=== PATIENT | male | born 1970 | race Caucasian/White ===

== ENCOUNTER 2017-07-04 20:31 | Inpatient (IN) | payer MEDICAID, OTHER ==
[~2017-07-04] VITALS: Ht 193 cm; Wt 97.0 kg
[~2017-07-04 20:31] MED LIST: CARV3.1212 PO; FURO-92 PO; LISI5TAB7 PO; POTA20TA14 PO
[2017-07-04 21:29] LABS: BASOPHILS # (AUTO) 0.05 x10^3/uL (0-0.1); BASOPHILS % (AUTO) 0 % (0-1); EOSINOPHILS # (AUTO) 0.16 x10^3/uL (0-0.4); EOSINOPHILS % (AUTO) 1 % (1-7); LYMPHOCYTES # (AUTO) 2.99 x10^3/uL (1-3.4); LYMPHOCYTES % (AUTO) 23 % (22-44); MD NO; MEAN CORPUSCULAR HEMOGLOBIN 30.3 pg (27.5-34.5); MEAN CORPUSCULAR HGB CONC 32.9 g/dL (33.2-36.2); MEAN CORPUSCULAR VOLUME 92.1 fL (81-97); MEAN PLATELET VOLUME 9.6 fL (7.4-10.4); MONOCYTES # (AUTO) 1.03 x10^3/uL (0.2-0.8); MONOCYTES % (AUTO) 8 % (2-9); NEUTROPHILS % (AUTO) 68 % (42-75); PLATELET COUNT 184 x10^3/uL (130-400); RED BLOOD COUNT 5.07 x10^6/uL (4.38-5.82); RED CELL DISTRIBUTION WIDTH 14.9 % (9.4-14.8)
[2017-07-04 21:41] LABS: ALANINE AMINOTRANSFERASE 70 U/L (12-78); ALBUMIN 3.3 g/dL (3.4-5.0); ANION GAP 7 mmol/L (5-15); CALCIUM 8.9 mg/dL (8.5-10.1); CHLORIDE 104 mmol/L (98-107); CREATININE 1.33 mg/dL (0.7-1.3)
[2017-07-04 21:45] LABS: ALKALINE PHOSPHATASE 60 U/L (45-117); BILIRUBIN,TOTAL 0.9 mg/dL (0.2-1.0); TOTAL PROTEIN 6.6 g/dL (6.4-8.2)
[2017-07-04] MEDS ORDERED: ASPIRIN 325 MG TABLET PO ONE (22:01)
[2017-07-04] MEDS ORDERED: ASPIRIN 81 MG TABLET CHEW ONE (22:18)
[2017-07-04] MEDS ORDERED: ONDANSETRON 2MG/ML, 2ML ONE (22:18)
[2017-07-04] MEDS ORDERED: MORPHINE SULFATE 4 MG/ML, 1ML ONE (22:18)
[2017-07-04] MEDS ORDERED: ONDANSETRON 2MG/ML, 2ML IVPush PRN (22:30)
[2017-07-04] MEDS ORDERED: MORPHINE SULFATE 4 MG/ML, 1ML IVPush PRN (22:30)
[2017-07-04] MEDS ORDERED: BISACODYL 10 MG SUPP PR PRN (23:30)
[2017-07-04] MEDS ORDERED: POLYETHYLENE GLYCOL 17 GM PACKET PO PRN (23:30)
[2017-07-05 00:09] VITALS: BP 107/77
[2017-07-05] MEDS: HEPARIN 5,000 UNITS/ML, 1ML SQ SCH ×3 (00:15→17:45)
[2017-07-05] MEDS: FUROSEMIDE 20 MG/2 ML IV SCH ×3 (00:15→17:45)
[2017-07-05] MEDS: SODIUM CHLORIDE FLUSH 10ML SYR IVF SCH ×3 (00:15→21:00)
[2017-07-05] MEDS: ONDANSETRON 2MG/ML, 2ML IVPush PRN ×2 (03:43→13:04)
[2017-07-05 04:11] LABS: AMPHETAMINE SCREEN, URINE Positive (Negative); BARBITURATE SCREEN, URINE Negative (Negative); BENZODIAZEPINE SCREEN, URINE Negative (Negative); CANNABINOID SCREEN, URINE Positive (Negative); COCAINE SCREEN, URINE Negative (Negative); METHADONE SCREEN, URINE Negative (Negative); OPIATE SCREEN, URINE Positive (Negative)
[2017-07-05 05:58] LABS: BASOPHILS # (AUTO) 0.06 x10^3/uL (0-0.1); BASOPHILS % (AUTO) 0 % (0-1); EOSINOPHILS # (AUTO) 0.13 x10^3/uL (0-0.4); EOSINOPHILS % (AUTO) 1 % (1-7); LYMPHOCYTES # (AUTO) 3.07 x10^3/uL (1-3.4); LYMPHOCYTES % (AUTO) 19 % (22-44); MD NO; MEAN CORPUSCULAR HEMOGLOBIN 30.4 pg (27.5-34.5); MEAN CORPUSCULAR HGB CONC 32.7 g/dL (33.2-36.2); MEAN CORPUSCULAR VOLUME 92.9 fL (81-97); MEAN PLATELET VOLUME 9.7 fL (7.4-10.4); MONOCYTES # (AUTO) 1.27 x10^3/uL (0.2-0.8); MONOCYTES % (AUTO) 8 % (2-9); NEUTROPHILS # (AUTO) 11.53 x10^3/uL (1.8-6.8); NEUTROPHILS % (AUTO) 72 % (42-75); PLATELET COUNT 175 x10^3/uL (130-400); RED BLOOD COUNT 5.53 x10^6/uL (4.38-5.82); RED CELL DISTRIBUTION WIDTH 14.7 % (9.4-14.8)
[2017-07-05 06:05] LABS: ALBUMIN 3.4 g/dL (3.4-5.0); ANION GAP 8 mmol/L (5-15); CALCIUM 8.8 mg/dL (8.5-10.1); CHLORIDE 103 mmol/L (98-107)
[2017-07-05 06:09] LABS: ALANINE AMINOTRANSFERASE 111 U/L (12-78); ALKALINE PHOSPHATASE 71 U/L (45-117); BILIRUBIN,TOTAL 1.8 mg/dL (0.2-1.0); CREATININE 1.67 mg/dL (0.7-1.3); TOTAL PROTEIN 6.8 g/dL (6.4-8.2)
[2017-07-05 06:29] VITALS: BP 93/72
[2017-07-05 06:37] VITALS: BP 94/52
[2017-07-05 06:45] VITALS: BP_SYST 92; BP_SYST 93; BP_DIAS 69; BP_DIAS 72
[2017-07-05] MEDS: CARVEDILOL 3.125 MG TABLET PO SCH ×2 (07:50→18:39)
[2017-07-05] MEDS ORDERED: POTASSIUM CHLORIDE 20 MEQ TAB.ER.PRT PO SCH (08:00)
[2017-07-05] MEDS ORDERED: PROMETHAZINE 25 MG/ML, 1ML IM PRN (08:00)
[2017-07-05] MEDS: SENNA/DOCUSATE TABLET PO SCH (08:04)
[2017-07-05 08:33] LABS: MICROSCOPIC AUTO
[2017-07-05 08:42] LABS: CULTURE INDICATED? NO
[2017-07-05] MEDS ORDERED: LISINOPRIL 5 MG TABLET PO SCH (09:00)
[2017-07-05] MEDS ORDERED: SODIUM POLYSTYRENE SULFONATE ORAL SUSP PO ONE ×2 (10:30→12:30)
[2017-07-05 11:56] LABS: HCT (SEDRATE) 54.9 % (39.2-51.8)
[2017-07-05 12:12] LABS: HIGH-SENSITIVITY CRP 2.2 mg/dL (0.02-0.30)
[2017-07-05] MEDS ORDERED: DEXTROSE 50%, 50ML SYRINGE ONE (12:17)
[2017-07-05] MEDS ORDERED: DEXTROSE 50%, 50ML SYRINGE IVPush ONE (12:30)
[2017-07-05] MEDS ORDERED: INSULIN REGULAR 100 UNITS/ML, 3ML VIAL IVPush SCH (12:30)
[2017-07-05] MEDS ORDERED: CALCIUM GLUCONATE 4.6 MEQ in SODIUM CHLORIDE 0.9% 50 ML IV ONE (12:30)
[2017-07-05 13:45] VITALS: BP 120/82
[2017-07-05] MEDS: ACETAMINOPHEN 325 MG TABLET PO PRN (14:31)
[2017-07-05 16:00] LABS: THYROID STIMULATING HORMONE 1.33 mIU/L (0.358-3.740)
[2017-07-05] MEDS ORDERED: VANCOMYCIN PER PHARMACY MC PRN (17:30)
[2017-07-05] MEDS ORDERED: PHARMACOKINETIC CONSULTATION MC ONE (17:30)
[2017-07-05] MEDS ORDERED: PHARMACOKINETIC MONITORING MC PRN (17:30)
[2017-07-05] MEDS: MEROPENEM 1 GM in SODIUM CHLORIDE 0.9% 100 ML IV SCH (17:44)
[2017-07-05] MEDS: VANCOMYCIN 2,000 MG in SODIUM CHLORIDE 0.9% 500 ML IV SCH (18:39)
[2017-07-05 20:10] VITALS: BP 91/61
[2017-07-06] MEDS: HEPARIN 5,000 UNITS/ML, 1ML SQ SCH ×3 (00:02→17:40)
[2017-07-06] MEDS: NICOTINE 14MG/24 HR PATCH.TD24 TD SCH (00:03)
[2017-07-06] MEDS: MEROPENEM 1 GM in SODIUM CHLORIDE 0.9% 100 ML IV SCH ×3 (01:20→17:39)
[2017-07-06 02:19] VITALS: BP 103/70
[2017-07-06] MEDS: CARVEDILOL 3.125 MG TABLET PO SCH ×2 (05:52→17:40)
[2017-07-06 05:55] LABS: MEAN CORPUSCULAR HGB CONC 32.7 g/dL (33.2-36.2); MEAN CORPUSCULAR VOLUME 91.6 fL (81-97); RED BLOOD COUNT 4.61 x10^6/uL (4.38-5.82); RED CELL DISTRIBUTION WIDTH 14.8 % (9.4-14.8)
[2017-07-06 05:56] LABS: CHLORIDE 101 mmol/L (98-107)
[2017-07-06 06:10] LABS: ANION GAP 10 mmol/L (5-15); CALCIUM 7.7 mg/dL (8.5-10.1); CREATININE 1.62 mg/dL (0.7-1.3)
[2017-07-06 06:20] LABS: MICROSCOPIC NOT IND
[2017-07-06 06:25] LABS: MEAN PLATELET VOLUME 10.2 fL (7.4-10.4); PLATELET COUNT 134 x10^3/uL (130-400)
[2017-07-06 06:27] LABS: MD YES
[2017-07-06 06:28] LABS: BAND#(MANUAL) 0.59 x10^3/uL; BANDS%(MANUAL) 3 % (0-7); EOS% (MANUAL) 1 % (1-7); LYMPH#(MANUAL) 2.57 x10^3/uL (1-3.4); LYMPHS% (MANUAL) 13 % (22-44); MONOS% (MANUAL) 1 % (2-9); REACTIVE LYMPHS # (MANUAL) 0.59 x10^3/uL (0-0); REACTIVE LYMPHS % (MANUAL) 3 % (0-0); SEG#(MANUAL) 15.64 x10^3/uL (1.8-6.8); SEGS% (MANUAL) 79 % (42-75)
[2017-07-06 06:29] LABS: POLYCHROMASIA 1+
[2017-07-06 06:30] LABS: <PLATELET ESTIMATE> ADEQUATE; LARGE PLATELETS 1+
[2017-07-06 06:32] LABS: CREATININE,URINE RANDOM 83.5 mg/dL
[2017-07-06 06:51] LABS: ABSOLUTE RETICS # 0.11 x10^6/uL (0.5-1.5); RED BLOOD COUNT 4.63 x10^6/uL (4.38-5.82); RETICULOCYTE COUNT % 2.38 % (0.5-1.5)
[2017-07-06 06:56] LABS: CALCIUM 7.7 mg/dL (8.5-10.1)
[2017-07-06] MEDS ORDERED: FUROSEMIDE 40 MG/4 ML IV SCH (07:30)
[2017-07-06 08:03] VITALS: BP 97/62
[2017-07-06] MEDS: SODIUM CHLORIDE FLUSH 10ML SYR IVF SCH ×2 (09:14→21:29)
[2017-07-06] MEDS: FUROSEMIDE 20 MG/2 ML IV SCH ×2 (09:15→17:38)
[2017-07-06] MEDS: SENNA/DOCUSATE TABLET PO SCH (09:22)
[2017-07-06] MEDS ORDERED: ERGOCALCIFEROL 50,000 UNIT CAPSULE PO SCH (09:30)
[2017-07-06] MEDS ORDERED: MAGNESIUM SULFATE PMX 2GM/50ML 50 ML IV ONE (10:00)
[2017-07-06 14:25] VITALS: BP 107/68
[2017-07-06 17:42] VITALS: BP 104/66
[2017-07-06] MEDS: VANCOMYCIN 2,000 MG in SODIUM CHLORIDE 0.9% 500 ML IV SCH (18:45)
[2017-07-06 19:38] VITALS: BP 102/50
[2017-07-06 20:40] LABS: ANION GAP 7 mmol/L (5-15); CALCIUM 8.2 mg/dL (8.5-10.1); CHLORIDE 100 mmol/L (98-107); CREATININE 1.61 mg/dL (0.7-1.3)
[2017-07-06] MEDS ORDERED: POTASSIUM CHLORIDE 20 MEQ TAB.ER.PRT PO ONE (21:00)
[2017-07-07 00:45] VITALS: BP 111/75
[2017-07-07] MEDS: NICOTINE 14MG/24 HR PATCH.TD24 TD SCH (00:47)
[2017-07-07] MEDS: MEROPENEM 1 GM in SODIUM CHLORIDE 0.9% 100 ML IV SCH ×3 (00:47→16:44)
[2017-07-07] MEDS: HEPARIN 5,000 UNITS/ML, 1ML SQ SCH ×3 (00:48→16:44)
[2017-07-07] MEDS: ACETAMINOPHEN 325 MG TABLET PO PRN ×3 (05:05→16:46)
[2017-07-07] MEDS: CARVEDILOL 3.125 MG TABLET PO SCH ×2 (05:06→16:44)
[2017-07-07 05:07] LABS: BASOPHILS # (AUTO) 0.17 x10^3/uL (0-0.1); BASOPHILS % (AUTO) 1 % (0-1); EOSINOPHILS # (AUTO) 0.25 x10^3/uL (0-0.4); EOSINOPHILS % (AUTO) 2 % (1-7); LYMPHOCYTES # (AUTO) 3.07 x10^3/uL (1-3.4); LYMPHOCYTES % (AUTO) 21 % (22-44); MD NO; MEAN CORPUSCULAR HEMOGLOBIN 30.5 pg (27.5-34.5); MEAN CORPUSCULAR HGB CONC 32.9 g/dL (33.2-36.2); MEAN CORPUSCULAR VOLUME 92.8 fL (81-97); MEAN PLATELET VOLUME 9.6 fL (7.4-10.4); MONOCYTES # (AUTO) 0.91 x10^3/uL (0.2-0.8); MONOCYTES % (AUTO) 6 % (2-9); NEUTROPHILS # (AUTO) 10.35 x10^3/uL (1.8-6.8); NEUTROPHILS % (AUTO) 70 % (42-75); PLATELET COUNT 128 x10^3/uL (130-400); RED BLOOD COUNT 4.75 x10^6/uL (4.38-5.82); RED CELL DISTRIBUTION WIDTH 14.6 % (9.4-14.8)
[2017-07-07 05:15] LABS: CHLORIDE 101 mmol/L (98-107)
[2017-07-07 05:29] LABS: ALANINE AMINOTRANSFERASE 2840 U/L (12-78); ALBUMIN 2.7 g/dL (3.4-5.0); ALKALINE PHOSPHATASE 66 U/L (45-117); ANION GAP 9 mmol/L (5-15); BILIRUBIN,TOTAL 1.3 mg/dL (0.2-1.0); CALCIUM 8.2 mg/dL (8.5-10.1); CREATININE 1.18 mg/dL (0.7-1.3); TOTAL PROTEIN 5.7 g/dL (6.4-8.2)
[2017-07-07 07:25] VITALS: BP 93/60
[2017-07-07] MEDS: SODIUM CHLORIDE FLUSH 10ML SYR IVF SCH ×2 (08:38→20:22)
[2017-07-07] MEDS: FUROSEMIDE 20 MG/2 ML IV SCH ×2 (08:38→16:44)
[2017-07-07] MEDS: SENNA/DOCUSATE TABLET PO SCH (08:38)
[2017-07-07 14:20] VITALS: BP 110/75
[2017-07-07] MEDS: LEVOFLOXACIN/PMX 750MG/150ML 150 ML IV SCH (18:06)
[2017-07-07 19:16] VITALS: BP 93/61
[2017-07-08] VITALS (8 sets, daily range): BP systolic 90–119; BP diastolic 67–85
[2017-07-08] MEDS: HEPARIN 5,000 UNITS/ML, 1ML SQ SCH ×3 (00:33→16:56)
[2017-07-08] MEDS: NICOTINE 14MG/24 HR PATCH.TD24 TD SCH ×3 (00:34→12:53)
[2017-07-08 05:17] LABS: BASOPHILS # (AUTO) 0.07 x10^3/uL (0-0.1); BASOPHILS % (AUTO) 1 % (0-1); EOSINOPHILS # (AUTO) 0.41 x10^3/uL (0-0.4); EOSINOPHILS % (AUTO) 3 % (1-7); LYMPHOCYTES # (AUTO) 2.95 x10^3/uL (1-3.4); LYMPHOCYTES % (AUTO) 23 % (22-44); MD NO; MEAN CORPUSCULAR HEMOGLOBIN 30.3 pg (27.5-34.5); MEAN CORPUSCULAR VOLUME 91.7 fL (81-97); MEAN PLATELET VOLUME 9.5 fL (7.4-10.4); MONOCYTES # (AUTO) 1.17 x10^3/uL (0.2-0.8); MONOCYTES % (AUTO) 9 % (2-9); NEUTROPHILS # (AUTO) 8.44 x10^3/uL (1.8-6.8); NEUTROPHILS % (AUTO) 65 % (42-75); PLATELET COUNT 120 x10^3/uL (130-400); RED BLOOD COUNT 4.86 x10^6/uL (4.38-5.82); RED CELL DISTRIBUTION WIDTH 15.2 % (9.4-14.8)
[2017-07-08 05:27] LABS: ALBUMIN 2.6 g/dL (3.4-5.0); ANION GAP 8 mmol/L (5-15); CALCIUM 7.6 mg/dL (8.5-10.1); CHLORIDE 102 mmol/L (98-107)
[2017-07-08 05:36] LABS: ALANINE AMINOTRANSFERASE 2458 U/L (12-78); ALKALINE PHOSPHATASE 77 U/L (45-117); BILIRUBIN,TOTAL 1.3 mg/dL (0.2-1.0); CREATININE 0.92 mg/dL (0.7-1.3); TOTAL PROTEIN 5.8 g/dL (6.4-8.2)
[2017-07-08] MEDS: CARVEDILOL 3.125 MG TABLET PO SCH ×3 (06:05→21:21)
[2017-07-08] MEDS: FUROSEMIDE 20 MG/2 ML IV SCH (09:38)
[2017-07-08] MEDS: SODIUM CHLORIDE FLUSH 10ML SYR IVF SCH ×2 (09:41→21:21)
[2017-07-08] MEDS: SENNA/DOCUSATE TABLET PO SCH (09:41)
[2017-07-08] MEDS ORDERED: FUROSEMIDE 20 MG/2 ML IV SCH (17:00)
[2017-07-08] MEDS: LEVOFLOXACIN/PMX 750MG/150ML 150 ML IV SCH (18:01)
[2017-07-08] MEDS: ACETAMINOPHEN 325 MG TABLET PO PRN (23:07)
[2017-07-09 01:07] VITALS: BP 98/69
[2017-07-09] MEDS: HEPARIN 5,000 UNITS/ML, 1ML SQ SCH ×4 (02:38→21:54)
[2017-07-09 05:40] LABS: ALBUMIN 2.8 g/dL (3.4-5.0); ANION GAP 7 mmol/L (5-15); CALCIUM 8.1 mg/dL (8.5-10.1); CHLORIDE 101 mmol/L (98-107)
[2017-07-09 05:41] LABS: MEAN CORPUSCULAR HEMOGLOBIN 30.3 pg (27.5-34.5); MEAN CORPUSCULAR HGB CONC 32.7 g/dL (33.2-36.2); MEAN CORPUSCULAR VOLUME 92.7 fL (81-97); PLATELET COUNT 133 x10^3/uL (130-400); RED BLOOD COUNT 4.95 x10^6/uL (4.38-5.82); RED CELL DISTRIBUTION WIDTH 15.3 % (9.4-14.8)
[2017-07-09 05:49] LABS: ALANINE AMINOTRANSFERASE 1919 U/L (12-78); ALKALINE PHOSPHATASE 79 U/L (45-117); BILIRUBIN,TOTAL 0.9 mg/dL (0.2-1.0); CREATININE 1.05 mg/dL (0.7-1.3); TOTAL PROTEIN 6.2 g/dL (6.4-8.2)
[2017-07-09 06:17] LABS: BASOPHILS # (AUTO) 0.08 x10^3/uL (0-0.1); BASOPHILS % (AUTO) 1 % (0-1); EOSINOPHILS # (AUTO) 0.41 x10^3/uL (0-0.4); EOSINOPHILS % (AUTO) 3 % (1-7); LYMPHOCYTES # (AUTO) 3.91 x10^3/uL (1-3.4); LYMPHOCYTES % (AUTO) 31 % (22-44); MD SCAN; MONOCYTES # (AUTO) 1.65 x10^3/uL (0.2-0.8); MONOCYTES % (AUTO) 13 % (2-9); NEUTROPHILS # (AUTO) 6.74 x10^3/uL (1.8-6.8); NEUTROPHILS % (AUTO) 53 % (42-75)
[2017-07-09 08:52] VITALS: BP 108/77
[2017-07-09] MEDS: CARVEDILOL 3.125 MG TABLET PO SCH ×3 (08:54→21:12)
[2017-07-09] MEDS: SENNA/DOCUSATE TABLET PO SCH (08:54)
[2017-07-09] MEDS: FUROSEMIDE 20 MG TABLET PO SCH ×2 (08:54→17:08)
[2017-07-09] MEDS: SODIUM CHLORIDE FLUSH 10ML SYR IVF SCH ×2 (08:54→21:12)
[2017-07-09] MEDS: ACETAMINOPHEN 325 MG TABLET PO PRN ×3 (09:46→21:54)
[2017-07-09 14:30] VITALS: BP 103/70
[2017-07-09] MEDS: LEVOFLOXACIN/PMX 750MG/150ML 150 ML IV SCH (17:59)
[2017-07-09 18:49] VITALS: BP 94/68
[2017-07-09] MEDS: NICOTINE 14MG/24 HR PATCH.TD24 TD SCH (19:35)
[2017-07-10 00:45] VITALS: BP 125/67
[2017-07-10 05:52] LABS: ALBUMIN 2.9 g/dL (3.4-5.0); ANION GAP 9 mmol/L (5-15); CALCIUM 8.3 mg/dL (8.5-10.1); CHLORIDE 103 mmol/L (98-107)
[2017-07-10 06:04] LABS: ALANINE AMINOTRANSFERASE 1435 U/L (12-78); ALKALINE PHOSPHATASE 73 U/L (45-117); BILIRUBIN,TOTAL 0.9 mg/dL (0.2-1.0); CREATININE 0.99 mg/dL (0.7-1.3); TOTAL PROTEIN 6.4 g/dL (6.4-8.2)
[2017-07-10 08:30] VITALS: BP 108/78
[2017-07-10] MEDS: SENNA/DOCUSATE TABLET PO SCH (08:41)
[2017-07-10] MEDS: HEPARIN 5,000 UNITS/ML, 1ML SQ SCH (08:54)
[2017-07-10] MEDS: CARVEDILOL 3.125 MG TABLET PO SCH (08:54)
[2017-07-10] MEDS: SODIUM CHLORIDE FLUSH 10ML SYR IVF SCH (08:54)
[2017-07-10] MEDS: METOPROLOL TARTRATE 50 MG TABLET PO SCH ×2 (11:10→16:32)
[2017-07-10] MEDS: FUROSEMIDE 20 MG TABLET PO SCH ×2 (11:10→16:31)
[2017-07-10 14:27] VITALS: BP 97/68
[2017-07-10] MEDS ORDERED: METOPROLOL TARTRATE 50 MG TABLET PO SCH (18:00)
== END 2017-07-10 16:50 | disposition left against medical advice (07) | DRG 871 ==
LOC: ED 21:35 → EDIP 22:10 → 5SO 23:48
PROVIDERS: ADMIT Hospitalist; ATTEND Hospitalist
DX: A41.9 Sepsis, unspecified organism (principal); I21.4 Non-ST elevation (NSTEMI) myocardial infarction; N17.0 Acute kidney failure with tubular necrosis; I50.43 Acute on chronic combined systolic (congestive) and diastolic (congestive) heart failure; I47.2 Ventricular tachycardia; E44.1 Mild protein-calorie malnutrition; I27.20 Pulmonary hypertension, unspecified; I42.0 Dilated cardiomyopathy; E87.5 Hyperkalemia; F15.10 Other stimulant abuse, uncomplicated; F32.9 Major depressive disorder, single episode, unspecified; I34.0 Nonrheumatic mitral (valve) insufficiency; I44.0 Atrioventricular block, first degree; I44.7 Left bundle-branch block, unspecified; I45.6 Pre-excitation syndrome; Z82.49 Family history of ischemic heart disease and other diseases of the circulatory system; Z91.14 Patient's other noncompliance with medication regimen; Z91.19 Patient's noncompliance with other medical treatment and regimen; Z83.3 Family history of diabetes mellitus; F17.210 Nicotine dependence, cigarettes, uncomplicated; Z68.26 Body mass index [BMI] 26.0-26.9, adult; D72.829 Elevated white blood cell count, unspecified
CPT/HCPCS: 36415; 71045; 76770; 80048; 80053; 80202; 80307; 81001; 81003; 82150; 82306; 82310; 82330; 82436; 82550; 82570; 82728; 82962; 83540; 83550; 83605; 83690; 83735; 83880; 83970; 84100; 84132; 84133; 84145; 84156; 84300; 84443; 84481; 84484; 85025; 85045; 85651; 86140; 86141; 86704; 86706; 86708; 86803; 87040; 87340; 87806; 93005; 93306; 93922; 93925; 93970; 96374; 96375; J0610; J1644; J1815; J1956; J2185; J2405; J2550; J3370; G0475; J1940; J3475; J7040

== ENCOUNTER 2017-08-05 13:39 | Emergency (ER) | payer MEDICAID, OTHER ==
[~2017-08-05] VITALS: Ht 193 cm; Wt 88.9 kg
[2017-08-05 13:56] VITALS: BP 99/64
== END 2017-08-05 16:18 | disposition home or self-care (01) ==
LOC: ED 16:10
DX: S29.012A Strain of muscle and tendon of back wall of thorax, initial encounter (principal); R07.89 Other chest pain; X50.1XXA Overexertion from prolonged static or awkward postures, initial encounter; Y93.89 Activity, other specified; Y99.8 Other external cause status; Y92.89 Other specified places as the place of occurrence of the external cause
CPT/HCPCS: 93005; 99284

== ENCOUNTER 2020-06-02 10:00 | Inpatient (IN) | payer OTHER ==
[~2020-06-02] VITALS: Ht 193 cm; Wt 92.4 kg
[~2020-06-02 10:00] MED LIST changes: +AMIO100T4 PO; +AMIO200T42 PO; +AMOX1TAB12 PO; +APIX5TAB PO; +ASPI81TA45 PO; +ATOR40TA78 PO; +DEXTROSE 5%, 50ML ONE; +DOXY100T PO; +GUAI200T37 PO; +MAGN300C PO; +MAGNESIUM SULFATE PO; +METO-93 PO; +POTA10TA6 PO; +RIVA20TA PO
--- NOTE | 2020-06-02 10:41 | NUR ---
PT C/O CP, SOB, AND N/V X 3 DAYS WITH SYMPTOMS WORSENING TODAY. PT STATES HE SWITCHED HIS LASIX MEDICATIONS 3 DAYS AGO AND HE FEELS HE IS RETAIING FLUID.
[2020-06-02 10:57] LABS: BASOPHILS % (AUTO) 1 % (0-1); EOSINOPHILS % (AUTO) 0 % (1-7); LYMPHOCYTES % (AUTO) 28 % (22-44); MEAN CORPUSCULAR HEMOGLOBIN 21.8 pg (27.5-34.5); MEAN CORPUSCULAR HGB CONC 30.5 g/dL (33.2-36.2); MEAN PLATELET VOLUME 8.6 fL (7.4-10.4); MONOCYTES % (AUTO) 10 % (2-9); NEUTROPHILS % (AUTO) 61 % (42-75); PLATELET COUNT 183 x10^3/uL (130-400); RED BLOOD COUNT 4.94 x10^6/uL (4.38-5.82); RED CELL DISTRIBUTION WIDTH 22.6 % (9.4-14.8)
[2020-06-02 11:04] LABS: ALANINE AMINOTRANSFERASE 28 U/L (12-78); ALBUMIN 3.5 g/dL (3.4-5.0); ANION GAP 13 mmol/L (5-15); CALCIUM 8.7 mg/dL (8.5-10.1); CHLORIDE 99 mmol/L (98-107); CREATININE 1.85 mg/dL (0.7-1.3)
[2020-06-02 11:08] LABS: ALKALINE PHOSPHATASE 112 U/L (45-117); BILIRUBIN,TOTAL 3.1 mg/dL (0.2-1.0); TOTAL PROTEIN 7.6 g/dL (6.4-8.2)
--- NOTE | 2020-06-02 11:10 | NUR ---
PT CURRENTLY IN AFLUTTER, RATE 120. MD DUMONT ADVISED.
[2020-06-02 11:15] LABS: TROPONIN I 0.138 ng/mL (0.000-0.045)
--- NOTE | 2020-06-02 11:15 | NUR ---
JUVENAL [place] ADVISED OF CRITICAL VALUES, GLUCOSE AND TROPONIN. JUVENAL VERBAL ORDER FOR DEXTROSE.
[2020-06-02] MEDS ORDERED: DEXTROSE 50%, 50ML SYRINGE ONE (11:16)
[2020-06-02] MEDS ORDERED: DEXTROSE 50%, 50ML SYRINGE IVPush ONE (11:30)
[2020-06-02 11:32] LABS: MD MORPH REVIEW ONLY
[2020-06-02 11:33] LABS: <PLATELET ESTIMATE> ADEQUATE; <PLT MORPHOLOGY> NORMAL PLT MORPH
[2020-06-02 11:34] LABS: ANISOCYTOSIS 2+
[2020-06-02 11:35] LABS: OVALOCYTES 1+
[2020-06-02 11:36] LABS: HYPOCHROMIA 2+; MICROCYTOSIS 2+; POLYCHROMASIA 1+
[2020-06-02] MEDS ORDERED: OMNIPAQUE 350 MG/ML, 75ML BOTTLE ONE (12:07)
[2020-06-02] MEDS ORDERED: FUROSEMIDE 40 MG/4 ML IVPush ONE (14:00)
[2020-06-02] MEDS ORDERED: DILTIAZEM 5 MG/ML, 5ML IV ONE (14:00)
[2020-06-02] MEDS ORDERED: FUROSEMIDE 40 MG/4 ML ONE (14:19)
[2020-06-02] MEDS ORDERED: DILTIAZEM 5 MG/ML, 5ML ONE (14:19)
[2020-06-02] MEDS ORDERED: CARVEDILOL 6.25 MG TABLET PO ONE (14:41)
[2020-06-02] MEDS ORDERED: CARVEDILOL 6.25 MG TABLET ONE (14:57)
--- NOTE | 2020-06-02 15:00 | NUR ---
task rn: pt room lights adjusted for pt comfort. pt reattached to all vs and cardiac monitors and pt educated on need to call before getting out of bed. pt being medicated per mar at this time.
--- NOTE | 2020-06-02 15:25 | NUR ---
REPORT TO CASSANDRA TINEO
[2020-06-02 16:01] VITALS: BP 129/86
[2020-06-02 16:06] VITALS: BP 129/86
[2020-06-02] MEDS ORDERED: LABETALOL 5MG/ML, 20ML ONE (16:36)
[2020-06-02] MEDS ORDERED: AMIODARONE 150 MG in DEXTROSE 5% 100 ML IV ONE (17:00)
[2020-06-02] MEDS ORDERED: FILTER 0.22 MICRON IV PRN (17:00)
[2020-06-02] MEDS ORDERED: LABETALOL 5MG/ML, 20ML IVPush ONE (17:00)
[2020-06-02] MEDS ORDERED: SPIRONOLACTONE 25 MG TABLET PO SCH (17:00)
[2020-06-02 17:19] LABS: BASOPHILS % (AUTO) 0 % (0-1); EOSINOPHILS % (AUTO) 0 % (1-7); LYMPHOCYTES % (AUTO) 15 % (22-44); MEAN CORPUSCULAR HEMOGLOBIN 21.6 pg (27.5-34.5); MEAN PLATELET VOLUME 8.7 fL (7.4-10.4); MONOCYTES % (AUTO) 7 % (2-9); NEUTROPHILS % (AUTO) 78 % (42-75); PLATELET COUNT 170 x10^3/uL (130-400); RED BLOOD COUNT 5.05 x10^6/uL (4.38-5.82); RED CELL DISTRIBUTION WIDTH 22.2 % (9.4-14.8)
[2020-06-02 17:29] LABS: ALANINE AMINOTRANSFERASE 30 U/L (12-78); ALBUMIN 3.3 g/dL (3.4-5.0); ANION GAP 20 mmol/L (5-15); CALCIUM 8.9 mg/dL (8.5-10.1); CHLORIDE 100 mmol/L (98-107); CREATININE 2.01 mg/dL (0.7-1.3)
[2020-06-02] MEDS ORDERED: DEXTROSE 10% 1,000 ML IV SCH (17:30)
[2020-06-02] MEDS ORDERED: DOBUTAMINE/D5W PMX 250 ML IV PRN ×2 (17:30→18:00)
[2020-06-02 17:31] LABS: INTERNATIONAL NORMALIZED RATIO 2.37 (0.93-1.1); PROTHROMBIN TIME 24.9 Seconds (9.6-11.5)
[2020-06-02 17:34] LABS: ALKALINE PHOSPHATASE 108 U/L (45-117); BILIRUBIN,TOTAL 4.5 mg/dL (0.2-1.0); TOTAL PROTEIN 7.1 g/dL (6.4-8.2); TROPONIN I 0.126 ng/mL (0.000-0.045)
[2020-06-02 17:38] LABS: MD MORPH REVIEW ONLY; MEAN CORPUSCULAR HGB CONC 29.6 g/dL (33.2-36.2)
[2020-06-02 17:39] LABS: <PLATELET ESTIMATE> ADEQUATE; ANISOCYTOSIS 2+; HYPOCHROMIA 2+; MICROCYTOSIS 1+; POLYCHROMASIA 1+; TARGET CELLS 1+
[2020-06-02 17:40] LABS: <PLT MORPHOLOGY> NORMAL PLT MORPH
[2020-06-02] MEDS: CARVEDILOL 3.125 MG TABLET PO SCH ×2 (17:43→21:51)
[2020-06-02] MEDS ORDERED: HEPARIN 25,000 UNITS/250ML PMX 250 ML IV PRN (18:00)
[2020-06-02] MEDS ORDERED: NOREPINEPHRINE 8 MG in SODIUM CHLORIDE 0.9% 242 ML IV PRN (18:00)
[2020-06-02] MEDS ORDERED: HEPARIN 5,000 UNITS/ML, 1ML IV ONE (18:00)
[2020-06-02] MEDS ORDERED: HEPARIN 5,000 UNITS/ML, 1ML IV PRN (18:00)
[2020-06-02] MEDS ORDERED: AMIODARONE 450 MG in DEXTROSE 5% 241 ML IV PRN (18:00)
[2020-06-02] MEDS ORDERED: DOBUTAMINE/D5W PMX 250 MG/250 ML ONE (18:06)
[2020-06-02] MEDS ORDERED: DEXTROSE 10%, 1,000ML ONE (18:12)
[2020-06-02] MEDS: DEXTROSE 50%, 50ML SYRINGE IVPush PRN ×2 (18:25→18:33)
[2020-06-02] MEDS ORDERED: GLUCAGON 1 MG IM PRN (18:30)
[2020-06-02] MEDS ORDERED: PHYTONADIONE 5 MG TABLET PO ONE (18:30)
[2020-06-02] MEDS ORDERED: DEXTROSE 4 GM TAB.CHEW PO PRN (18:30)
[2020-06-02] MEDS: AMIODARONE 450 MG in DEXTROSE 5% 241 ML IV PRN (19:13)
[2020-06-02 19:18] LABS: BILIRUBIN, DIRECT 2.4 mg/dL (0.1-0.2)
[2020-06-02 19:27] LABS: BILIRUBIN,INDIRECT 2.2 mg/dL (0.0-2.0); BILIRUBIN,TOTAL 4.6 mg/dL (0.2-1.0)
[2020-06-02] MEDS ORDERED: STERILE WATER IV SCH ×3 (19:30→23:30)
[2020-06-02] MEDS ORDERED: DEXTROSE 70% IV SCH ×3 (19:30→23:30)
[2020-06-02 20:06] LABS: MICROSCOPIC AUTO
[2020-06-02 20:18] LABS: AMPHETAMINE SCREEN, URINE Negative (Negative); BARBITURATE SCREEN, URINE Negative (Negative); BENZODIAZEPINE SCREEN, URINE Negative (Negative); CANNABINOID SCREEN, URINE Negative (Negative); COCAINE SCREEN, URINE Negative (Negative); METHADONE SCREEN, URINE Negative (Negative); OPIATE SCREEN, URINE Negative (Negative)
[2020-06-02] MEDS ORDERED: PROPOFOL 10 MG/ML, 20ML ONE (20:56)
[2020-06-02] MEDS ORDERED: ROCURONIUM 10MG/ML,5ML ONE ×2 (20:56)
[2020-06-02] MEDS: EPINEPHRINE 10 MG in SODIUM CHLORIDE 0.9% 240 ML IV PRN (20:57)
[2020-06-02] MEDS ORDERED: ATORVASTATIN 40 MG TABLET PO SCH (21:00)
[2020-06-02] MEDS ORDERED: PROPOFOL 100 ML IV ONE (21:09)
[2020-06-02] MEDS: PROPOFOL 100 ML IV PRN (21:30)
[2020-06-02] MEDS: SODIUM CHLORIDE FLUSH 10ML SYR IVF SCH (21:44)
[2020-06-02] MEDS ORDERED: PHARMACY MAY ADJ FOR RENAL FX MC SCH (22:00)
[2020-06-02] MEDS ORDERED: LACTULOSE 20 GM/30 ML UDC NG PRN (22:00)
[2020-06-02] MEDS ORDERED: LIDOCAINE-MPF 1%, 2ML ENDO PRN (22:00)
[2020-06-02] MEDS ORDERED: EPINEPHRINE 5 MG in SODIUM CHLORIDE 0.9% 245 ML IV PRN (22:00)
[2020-06-02] MEDS ORDERED: BISACODYL 10 MG SUPP PR PRN (22:00)
[2020-06-02] MEDS ORDERED: SENNA 176 MG/5 ML ORAL SOL NG PRN (22:00)
[2020-06-02] MEDS ORDERED: SENNA/DOCUSATE TABLET NG PRN (22:00)
[2020-06-02 22:48] LABS: TROPONIN I 0.136 ng/mL (0.000-0.045)
[2020-06-02] MEDS ORDERED: SODIUM BICARB 8.4%, 50ML SYRINGE IVPush ONE (23:00)
[2020-06-02] MEDS ORDERED: SODIUM BICARB 8.4%, 50ML SYRINGE ONE (23:11)
[2020-06-02] MEDS: VASOPRESSIN 20 UNIT in SODIUM CHLORIDE 0.9% 99 ML IV PRN (23:25)
[2020-06-02] MEDS ORDERED: SODIUM BICARBONATE IV SCH (23:30)
[2020-06-02] MEDS ORDERED: [UNRECOGNIZED DRUG - OTHER] IV SCH (23:30)
[2020-06-03] MEDS: AMIODARONE 450 MG in DEXTROSE 5% 241 ML IV PRN (01:37)
[2020-06-03] MEDS: FENTANYL PF 100 MCG/2ML IVPush PRN ×4 (02:27→13:22)
[2020-06-03] MEDS: PROPOFOL 100 ML IV PRN ×2 (04:52→12:20)
[2020-06-03 06:03] LABS: ANION GAP 26 mmol/L (5-15); BASOPHILS % (AUTO) 0 % (0-1); CALCIUM 7.9 mg/dL (8.5-10.1); CHLORIDE 94 mmol/L (98-107); CREATININE 3.04 mg/dL (0.7-1.3); EOSINOPHILS % (AUTO) 0 % (1-7); LYMPHOCYTES % (AUTO) 9 % (22-44); MEAN CORPUSCULAR HEMOGLOBIN 21.8 pg (27.5-34.5); MONOCYTES % (AUTO) 7 % (2-9); NEUTROPHILS % (AUTO) 84 % (42-75); PLATELET COUNT 169 x10^3/uL (130-400); RED BLOOD COUNT 4.64 x10^6/uL (4.38-5.82); RED CELL DISTRIBUTION WIDTH 22.6 % (9.4-14.8)
[2020-06-03 06:07] LABS: TROPONIN I 0.156 ng/mL (0.000-0.045)
[2020-06-03] MEDS: EPINEPHRINE 10 MG in SODIUM CHLORIDE 0.9% 240 ML IV PRN (06:29)
[2020-06-03] MEDS ORDERED: VANCOMYCIN PER PHARMACY MC PRN (06:30)
[2020-06-03 06:45] LABS: MD SCAN; MEAN CORPUSCULAR HGB CONC 29.3 g/dL (33.2-36.2)
[2020-06-03] MEDS ORDERED: MEROPENEM 500 MG in SODIUM CHLORIDE 0.9% 100 ML IV SCH (07:00)
[2020-06-03] MEDS ORDERED: PHARMACOKINETIC MONITORING MC PRN (07:00)
[2020-06-03] MEDS ORDERED: VANCOMYCIN 1,600 MG in SODIUM CHLORIDE 0.9% 250 ML IV ONE (07:00)
[2020-06-03 07:32] LABS: BILIRUBIN, DIRECT 4.1 mg/dL (0.1-0.2)
[2020-06-03 07:33] LABS: BILIRUBIN,TOTAL 5.5 mg/dL (0.2-1.0); TOTAL PROTEIN 6.5 g/dL (6.4-8.2)
[2020-06-03 07:37] LABS: BILIRUBIN,INDIRECT 1.4 mg/dL (0.0-2.0)
[2020-06-03 07:38] LABS: INTERNATIONAL NORMALIZED RATIO 3.57 (0.93-1.1); PROTHROMBIN TIME 37.3 Seconds (9.6-11.5)
[2020-06-03] MEDS: VASOPRESSIN 20 UNIT in SODIUM CHLORIDE 0.9% 99 ML IV PRN (07:40)
[2020-06-03] MEDS: SODIUM CHLORIDE FLUSH 10ML SYR IVF SCH (07:57)
[2020-06-03] MEDS ORDERED: ESOMEPRAZOLE 40 MG IV IVPush SCH (09:00)
[2020-06-03] MEDS ORDERED: LISINOPRIL 5 MG TABLET PO SCH (09:00)
[2020-06-03] MEDS ORDERED: PANTOPRAZOLE 40 MG IV IV SCH (09:00)
[2020-06-03] MEDS ORDERED: LORazepam 2 MG/ML, 1ML IVPush PRN (13:00)
[2020-06-03] MEDS ORDERED: LORazepam 2 MG/ML, 1ML IV ONE (13:00)
[2020-06-03] MEDS ORDERED: MORPHINE SULFATE 4 MG/ML, 1ML IVPush PRN (13:00)
[2020-06-03] MEDS ORDERED: MORPHINE SULFATE 4 MG/ML, 1ML IV ONE (13:00)
[2020-06-03] MEDS ORDERED: morphine SULFATE 100 MG in DEXTROSE 5% 90 ML IV PRN (17:00)
[2020-06-03] MEDS: CARVEDILOL 3.125 MG TABLET PO SCH (17:59)
[2020-06-03] MEDS ORDERED: DOBUTAMINE/D5W PMX 250 ML IV PRN (18:00)
== END 2020-06-03 22:55 | disposition expired | DRG 871 ==
LOC: ED 11:31 → 5SO 14:57 → CCU 17:16 → 4NW 06-03 19:26
PROVIDERS: ADMIT Hospitalist; ATTEND Hospitalist
PROC: 02HV33Z Insertion of Infusion Device into Superior Vena Cava, Percutaneous Approach (ICD-10-PCS; principal; 2020-06-02)
PROC: B548ZZA Ultrasonography of Superior Vena Cava, Guidance (ICD-10-PCS; 2020-06-02)
PROC: 04HY33Z Insertion of Infusion Device into Lower Artery, Percutaneous Approach (ICD-10-PCS; 2020-06-02)
PROC: 5A1935Z Respiratory Ventilation, Less than 24 Consecutive Hours (ICD-10-PCS; 2020-06-02)
PROC: 0BH17EZ Insertion of Endotracheal Airway into Trachea, Via Natural or Artificial Opening (ICD-10-PCS; 2020-06-02)
PROC: 5A2204Z Restoration of Cardiac Rhythm, Single (ICD-10-PCS; 2020-06-03)
PROC: 02HV33Z Insertion of Infusion Device into Superior Vena Cava, Percutaneous Approach (ICD-10-PCS; 2020-06-03)
PROC: B548ZZA Ultrasonography of Superior Vena Cava, Guidance (ICD-10-PCS; 2020-06-03)
DX: A41.9 Sepsis, unspecified organism (principal); G93.41 Metabolic encephalopathy; J96.01 Acute respiratory failure with hypoxia; R65.21 Severe sepsis with septic shock; D68.9 Coagulation defect, unspecified; E87.1 Hypo-osmolality and hyponatremia; I42.0 Dilated cardiomyopathy; I48.20 Chronic atrial fibrillation, unspecified; I50.20 Unspecified systolic (congestive) heart failure; N17.9 Acute kidney failure, unspecified; D50.9 Iron deficiency anemia, unspecified; F17.210 Nicotine dependence, cigarettes, uncomplicated; I27.20 Pulmonary hypertension, unspecified; I34.0 Nonrheumatic mitral (valve) insufficiency; K72.90 Hepatic failure, unspecified without coma; R57.0 Cardiogenic shock; Z51.5 Encounter for palliative care; F32.9 Major depressive disorder, single episode, unspecified; E16.2 Hypoglycemia, unspecified; Z79.899 Other long term (current) drug therapy; I25.2 Old myocardial infarction; Z86.74 Personal history of sudden cardiac arrest; Z91.030 Bee allergy status; Z95.810 Presence of automatic (implantable) cardiac defibrillator
CPT/HCPCS: 36415; 36556; 36600; 71045; 71275; 76705; 76937; 80048; 80053; 80076; 80307; 80320; 81001; 82247; 82248; 82533; 82728; 82803; 82962; 83540; 83550; 83605; 83735; 83880; 84100; 84145; 84443; 84484; 85025; 85379; 85520; 85610; 86704; 86706; 87040; 87081; 87340; 92950; 93005; 93306; 94002; 94003; 96374; 96375; 99285; G0378; J0171; J1940; J2185; J2704; J3010; J3370; J7060; Q9967; C1751; G0480; J0282; J1250; J1642; J2060; J2270; J7050